=== PATIENT | male | born 1945 | race Caucasian/White ===

== ENCOUNTER 2019-11-19 09:58 | Day surgery (SDC) | payer OTHER, BC ==
[~2019-11-19] VITALS: Ht 185.4 cm; Wt 112.9 kg
--- NOTE | ~2019-11-19 | O ---
[facility] [place] [address] OPERATIVE REPORT Name: SCARLETT ADKINS Room #: 150-4 [facility] M.R.#: [id number] Admission: 11/19/19 Attend Phys: Owen Gerardo MD Discharge: Date of : 47 Report #: [id number] THIS REPORT FOR: cc: Mikael Granados MD,Mikael Gerardo,Owen Kim MD ~ CC: Mikael Gerardo DATE OF SERVICE: 11/19/[address] Owen Gerardo and Dr. Granados. PREOPERATIVE DIAGNOSIS: Incarcerated umbilical hernia. POSTOPERATIVE DIAGNOSIS: Incarcerated umbilical hernia. PROCEDURE: Repair of an incarcerated umbilical hernia. SURGEON: Owen Gerardo MD ANESTHESIA: Local IV sedation. DESCRIPTION OF PROCEDURE: The patient was brought to the operating room and placed on operative table in the supine position. Sequential compression devices were in place for DVT prophylaxis. There was no indication for preoperative antibiotics. The patient underwent IV sedation. The abdomen was prepped and draped in a sterile fashion. Skin and subcutaneous tissue were then infiltrated using 0.5% Marcaine and 1% Xylocaine in a 1:1 mixture. A transverse supraumbilical skin incision was performed over the incarcerated hernia sac using #10 scalpel blade. Hemostasis obtained using electrocautery. Dissection was carried down through subcutaneous tissue around this incarcerated hernia sac down to the fascia. The hernia sac was then opened and some incarcerated omentum was carefully dissected free using the electrocautery and reduced back into the abdomen with hemostasis intact on the omentum. The hernia sac was then excised. The fascia then was closed using interrupted [id number] #1 Prolene sutures without any tension. The umbilicus was then tacked to the fascia using simple interrupted 2-0 chromic suture in deep and superficial, subcutaneous tissue was then reapproximated using simple interrupted 2-0 chromic sutures. Skin was then closed using a running 4-0 subcuticular Vicryl stitch. The wound was then dressed with Dermabond, Telfa, 4 x 4 gauze, sponge and tape. The patient was then taken to the recovery room awake, alert, in good condition. [address] [address] OPERATIVE REPORT Name: SCARLETT ADKINS Room #: 150-4 [facility] M.R.#: [id number] Admission: 11/19/19 Attend Phys: Owen Gerardo MD Discharge: Date of : 47 Report #: [id number] Estimated blood loss was approximately 10 mL and the patient tolerated procedure well. All sponge, lap and instrument counts correct x 2. By: 1430 [id number] Owen Gerardo MD /nt
[~2019-11-19 09:58] MED LIST: ACCUPRIL40 MG PO; BYSTOLIC10 MG PO; CRESTOR10 MG PO; FISH OIL 1,0001 EAC9 PO; FUROSEMIDE 20 M20 M1 PO; HYOSCYAMINE0.375 MG PO; LECITHIN1200 M1 PO; LUMITENE30 MG PO; NEURONTIN 400M400 M2 PO; VITAMIN B COMP1 EACH PO; VITAMIN C1000 MG PO; VITAMIN D325 MC3 PO; VITAMIN E400 UNIT PO
[2019-11-19 10:54] LABS: CALCIUM 8.4 mg/dL (8.5-10.1); CREATININE 1.5 mg/dL (0.7-1.3); POTASSIUM 4.1 mmol/L (3.5-5.1)
[2019-11-19] MEDS ORDERED: NORCO 5-325 TA1 EAC1 PO (13:08)
[2019-11-19 13:33] VITALS: BP 147/86
[2019-11-19 14:52] VITALS: BP 147/86
== END 2019-11-19 16:00 | disposition home or self-care (01) ==
LOC: OR 09:58 → TBA 09:59 → OR 11:39
PROVIDERS: Surgery
DX: K42.0 Umbilical hernia with obstruction, without gangrene (principal); I10 Essential (primary) hypertension; E78.00 Pure hypercholesterolemia, unspecified; Z98.890 Other specified postprocedural states; Z79.899 Other long term (current) drug therapy; Z85.46 Personal history of malignant neoplasm of prostate; Z96.641 Presence of right artificial hip joint; Z98.41 Cataract extraction status, right eye; Z98.42 Cataract extraction status, left eye; Z11.59 Encounter for screening for other viral diseases
CPT/HCPCS: 50010; 50101; 50386; 50417; 54118; 56524; 56525; 56526; 62110; 62850; 70005